=== PATIENT | male | born 1980 | race Caucasian/White ===

== ENCOUNTER 2020-05-11 13:27 | Outpatient (CLI) | payer BC, SELFPAY ==
--- NOTE | ~2020-05-11 | XR_ITS ---
XR hand LT 2V 05/11/2020 13:41 INDICATION: Pain in the left fifth finger PROCEDURE: 2 views left hand COMPARISON: 09/23/2008 FINDINGS: Fracture, dislocation or subluxation is not identified. The soft tissues appear within norm al limits. No foreign bodies are identified. IMPRESSION: 1: NO ACUTE BONE OR JOINT ABNORMALITY IDENTIFIED. Reviewed, dictated and finalized at location B. [employer]
== END 2020-05-11 13:28 ==
PROVIDERS: PCP Family Medicine; Visit Provider Physician Assistant
DX: M79.645 Pain in left finger(s) (principal)
CPT/HCPCS: 73120

== ENCOUNTER → 2020-07-21 15:00 | Outpatient (CLI) | payer BC, SELFPAY ==
--- NOTE | ~2020-07-21 | XR_ITS ---
EXAMINATION: XR foot LT min 3V DATE: 07/21/2020 15:13 INDICATION: Left foot pain TECHNIQUE: Dorsoplantar, two oblique and lateral views of the left foot were obtained. COMPARISON: None. FINDINGS: Alignment is normal. No fracture. Joint spaces are normal. Small Achilles calcaneal spur. Soft tissue s are unremarkable. No left ankle joint effusion. IMPRESSION: 1. Small enthesophytes at the calcaneal insertion of the distal Achilles tendon. Otherwise unremarkab le left foot radiographs. Reviewed, dictated and finalized at location A. IMPRESSION: 1. Small enthesophytes at the calcaneal insertion of the distal Achilles tendon . Otherwise unremarkable left foot radiographs.
== END ==
PROVIDERS: PCP Family Medicine; Visit Provider Physician Assistant
DX: M79.673 Pain in unspecified foot (principal)
CPT/HCPCS: 73630

== ENCOUNTER 2021-10-23 10:07 | Outpatient (CLI) | payer BC, SELFPAY ==
--- NOTE | ~2021-10-23 | XR_ITS ---
XR heel RT min 2V 10/23/2021 10:18 Indication: Right heel pain Procedure: 2 views right heel Comparison: 06/08/2005 Findings: No fracture, subluxation or dislocation. There is a degenerative calcaneal enthesophyte pos teriorly. No soft tissue abnormality. No foreign bodies. Impression: 1: No acute bone or joint abnormality. 2: Degenerative calcaneal enthesophyte posteriorly. Reviewed, dictated and finalized at location A. Impression: 1: No acute bone or joint abnormality. 2: Degenerative calcaneal enthesophyte posteriorly.
== END 2021-10-23 10:08 ==
PROVIDERS: PCP Physician Assistant Medical; Visit Provider Physician Assistant Medical
DX: M79.671 Pain in right foot (principal)
CPT/HCPCS: 73650

== ENCOUNTER 2023-04-17 10:36 | Outpatient (CLI) | payer BC, SELFPAY ==
[2023-04-17 18:49] LABS: Hemoglobin 14.7 g/dL (14.0-18.0); Immature Platelet Fraction Pct 14.1 % (0.9-11.2); Mean Corpuscular HGB Conc 31.3 g/dl (32-36); Mean Corpuscular Hemoglobin 29.6 pg (26-34); Mean Corpuscular Volume 94.8 fl (80-100); Mean Platelet Volume 12.7 fl (7.4-10.4); Platelet Count Result 235 k/mm3 (150-375); Red Blood Count 4.96 M/mm3 (4.6-6.20); Red Cell Distribution Width 13.5 % (11.5-14.5); White Blood Count 9.6 K/mm3 (4.5-10.0)
[2023-04-17 19:15] LABS: Alanine Aminotransferase 49 U/L (6-50); Albumin Level 4.4 g/dL (3.5-5.1); Alkaline Phosphatase 80 U/L (38-126); Anion Gap 6 mmol/L (8-16); Aspartate Amino Transferase 39 U/L (17-59); Bilirubin,Total 0.4 mg/dL (0.2-1.3); Blood Urea Nitrogen 18 mg/dL (9-20); Calcium 9.5 mg/dL (8.4-10.2); Carbon Dioxide 32 mmol/L (22-30); Chloride 101 mmol/L (98-107); Cholesterol 245 mg/dL (0-200); Estimated Glomerular Filt Rate > 60; Glucose 103 mg/dL (65-110); HDL Direct 37 mg/dL; Potassium 4.6 mmol/L (3.4-5.0); Sodium 139 mmol/L (137-145); Triglycerides 328 mg/dL (<150)
[2023-04-17 19:26] LABS: LDL Cholesterol Direct 144 mg/dL
== END 2023-04-17 10:37 | disposition home or self-care (01) ==
PROVIDERS: PCP Nurse Practitioner Adult Health; Visit Provider Nurse Practitioner Adult Health
DX: Z13.9 Encounter for screening, unspecified (principal)
CPT/HCPCS: 36415; 80053; 80061; 84443; 85027; 85055

== ENCOUNTER 2023-04-18 13:11 | Outpatient (CLI) | payer BC, SELFPAY ==
--- NOTE | ~2023-04-18 | US_ITS ---
EXAMINATION: US scrotum doppler DATE: 04/18/2023 13:43 INDICATION: Right groin pain. TECHNIQUE: Grayscale and Doppler ultrasound images of the testes were obtained. COMPARISON: None. FINDINGS: The right testis measures 4.2 x 2.2 x 3.3 cm. The left testis measures 4.4 x 2.1 x 3.1 cm. No testicular mass. There is normal vascular flow to both testes. The right epididymis contains a 1.5 cm cyst. The left epididymis is normal with normal vascular flow. Very small volume left hydrocele w ith septations. Small right varicocele. IMPRESSION: 1.5 cm right epididymal cyst. Small right varicocele. Trace left hydrocele with septations may reflect old pneumatocele or infected hydrocele, correlate fo r symptoms of infection. Reviewed, dictated and finalized at [facility] K. IC HEALTH ADMINISTRATOR IMPRESSION: 1.5 cm right epididymal cyst. Small right varicocele. Trace left hydrocele with septations may reflect old pneumatocele or infected h ydrocele, correlate for symptoms of infection.
--- NOTE | ~2023-04-18 | US_ITS ---
EXAMINATION: US soft tissue groin RT DATE: 04/18/2023 13:43 INDICATION: N50.819 - Testicular pain, unspecified . TECHNIQUE: Grayscale and Doppler ultrasound images of the right groin were obtained. COMPARISON: Ultrasound scrotum same date. FINDINGS: The area of clinical concern in the right groin was sonographically interrogated revealing a 6.1 x 2.2 x 4.0 cm inguinal mass that appears to extend through a 2.3 cm breech in the inguinal can al, with corresponding motion with the Valsalva maneuver. IMPRESSION: Right inguinal hernia. Reviewed, dictated and finalized at location K. TING SHEET TANK OPERATOR IMPRESSION: Right inguinal hernia.
== END 2023-04-18 13:12 ==
LOC: MICIMG 13:12
PROVIDERS: PCP Nurse Practitioner Adult Health; Visit Provider Nurse Practitioner Adult Health
DX: N50.3 Cyst of epididymis (principal); I86.1 Scrotal varices; K40.90 Unilateral inguinal hernia, without obstruction or gangrene, not specified as recurrent
CPT/HCPCS: 76870; 76882; 93976

== ENCOUNTER 2023-06-04 10:29 | Outpatient (CLI) | payer BC, SELFPAY ==
--- NOTE | 2023-06-04 10:30 | ECG_ITS ---
Measurements Intervals [place] Rate: 70 P: 40 AK: 158 QRS: -9 QRSD: 101 T: 24 QT: 393 QTc: 425 Interpretive Statements SINUS RHYTHM BASELINE ARTIFACT- I, II, III, AVR, AVL, AVF NORMAL ECG NO PREVIOUS ECG AVAILABLE FOR COMPARISON Electronically Signed On 06-04-2023 11:16:12 CUSTOM CAR BUILDER by Shahram Mercado D.O.
== END 2023-06-04 10:30 | disposition home or self-care (01) ==
LOC: ANHSURGERY 10:34
PROVIDERS: PCP Nurse Practitioner Adult Health; Visit Provider Surgery
DX: Z01.818 Encounter for other preprocedural examination (principal); K40.90 Unilateral inguinal hernia, without obstruction or gangrene, not specified as recurrent; Z87.891 Personal history of nicotine dependence
CPT/HCPCS: 36415; 86850; 86900; 86901; 93005

== ENCOUNTER 2023-06-06 00:13 | Day surgery (SDC) | payer BC, SELFPAY ==
[2023-06-02 11:50] VITALS: BMI 31.4
--- NOTE | 2023-06-02 11:55 | PC.NURSE ---
Report to the Outpatient Waiting Room, entrance under the green pavilion located off [facility], at time 11:30 on date 06/06/23. Planned Procedure Time: 1:30. Time changes happen often and if your time is changed the preop area will call you the afternoon before. - You and your visitor will be asked to self-screen and do not enter if you have any COVID symptoms. - A mask is optional within the hospital at this time. Patients may have clear liquids (water, carbonated beverages, clear teas, apple juice) until 3 hours prior to surgery (10:30) with a maximum of 20 ounces. - No food from midnight until time of surgery Take the following medications with a SIP of water the morning of surgery: N/A DO NOT STOP ANY OF YOUR OTHER PRESCRIPTION MEDICATIONS PRIOR TO SURGERY ?EXCEPT THE FOLLOWING Medications to discontinue per physician: N/A Date to take last dose: N/A Please no make-up, nail romansh, hairspray, perfume, deodorant, or body powder the day of surgery. No jewelry (including any body piercings) or valuables the day of surgery, leave them at home. Please take a shower or bath the night before, or the morning of, surgery with an antibacterial soap. Wear comfortable, loose fitting clothing. - Jewelry must be removed prior to entering the operating room. Rings and piercings that are not removed may be cut off. - The hospital will not accept responsibility for valuables. - Please leave all valuables, including medications, at home the day of surgery. If you are going home after surgery, a licensed forklift driver must drive you home. - NO public transportation without another adult if you receive anesthesia. - We recommend that an adult stay with you for 24 hours following discharge. - We also recommend that you do not drive, make important decision, drink alcoholic beverages, or take any drugs that were not prescribed by your health care provider for at least 24 hours after your discharge time. Follow any additional instructions given to you from your surgeon. If you or anyone in your household have experienced Covid symptoms in the past week, please notify your surgeon or the nurse liaison at the phone number below for possible testing. Telephone instructions given to PT - JOSE FRANCISCO WELLS and asked if any additional questions and then verbalized understanding. Patient advised to call surgeon office or pre surgery nurse liaison [phone] if any additional questions.
[2023-06-06] VITALS (10 sets, daily range): BP systolic 129–153; BP diastolic 78–93; PULSE 69–89; RESP 14–16; TEMP 36.4–37; O2SAT 96–100
--- NOTE | 2023-06-06 07:12 | PM.IMHP ---
H&P: HPI History of Present Illness Date/Time: 06/06/23 07:12 Chief Complaint: Right inguinal hernia Narrative: Mr. Laura presents to the office at the request of Amaris Cantor APRN for evaluation. Patient reports a 4 to 5 week history of right groin bulging.? Most prominent with prolonged ambulation and strenuous activity.? Reduces easily with rest and lying down.? Also noticed a small nodule in his scrotum.? Was sent by his PCP for a soft tissue ultrasound of the right groin and a scrotal ultrasound. Soft tissue ultrasound showed: FINDINGS: The area of clinical concern in the right groin was sonographically interrogated revealing a 6.1 x 2.2 x 4.0 cm inguinal mass that appears to extend through a 2.3 cm breech in the inguinal canal, with corresponding motion with the Valsalva maneuver. Scrotal ultrasound showed: FINDINGS: The right testis measures 4.2 x 2.2 x 3.3 cm. The left testis measures 4.4 x 2.1 x 3.1 cm. No testicular mass. There is normal vascular flow to both testes. The right epididymis contains a 1.5 cm cyst. The left epididymis is normal with normal vascular flow. Very small volume left hydrocele with septations. Small right varicocele. Denies urological evaluation for finding on scrotal imaging.. Review of Systems Review of Systems: The remainder of the review of systems to include constitutional, HEENT, cardiovascular, respiratory, GI, , integumentary, musculoskeletal, endocrine, immunologic, hematologic, psychiatric, and neurologic are all negative except for which is mentioned above in the HPI. [facility] Past Medical History Medical History Heel spur Family History Family History Grandparent Brain cancer Alzheimer disease Social History Social History Smoking packs per day: 1 Smoking cigarettes per day: 20.0 Years smoked: 25 Smoking pack-years: 25.00 Smoking status: Former smoker Tobacco type: cigarettes Second hand tobacco smoke exposure: Yes Smoking end date: 03/31/21 Alcohol intake: current Drinks per week: 1 Alcohol use details: 8/MONTH Substance use: current Substance use type: marijuana Lack of Transportation: No Lack of Food: Never True Current Housing: I Have Housing Concerned About Future Housing: No Difficulty Paying Gas/Electric Bills: No Difficulty Paying for Meds: No Currently Unemployed: No Education: High School Diploma/GED Difficulty w/ Childcare or Family Care: No Living arrangements: with family Occupation/Education: occupation Gender identity (if verbalized by the patient): Male Spiritual care concerns: No Agree to blood products: Yes Meds Home Medications and Allergies Home Medications Medication Instructions Recorded Confirmed Type No Home Medications 06/02/23 06/02/23 History Allergies Allergy/AdvReac Type Severity Reaction Status Date / Time No Known Allergies Allergy Mild Verified 06/02/23 11:48 Exam Const: General: comfortable and no acute distress HENMT: Ears: TM's normal bilaterally Face/Nose/Sinus: Normal nares present Mouth: Yes moist mucous membranes Eyes: General: appearance normal, both eyes and all related structures Sclera: sclerae normal Pupils: Equal, round and reactive pupils present EOM: EOMs intact bilaterally Neck: Neck: supple and no JVD Resp: Effort & Inspection: normal respiratory effort Auscultation: clear to auscultation bilaterally Cardio: Rate: regular rate Rhythm: regular rhythm GI: GI Palp: Yes Soft to palpation, No Firmness to palpation present (GI), No Tenderness to palpation present (GI), No Guarding due to palpation present (GI) and No Hernia present : Other: Bilateral descended testes.? Moderate reducible right inguinal hernia. No left inguinal hernia.? Unable to appreciate hydrocele or v
--- NOTE | 2023-06-06 07:15 | WPDHPUPDATE1 ---
History and Physical Update Update Date/Time: 06/06/23 07:15 History and Physical has been reviewed, including an updated exam of the patient. There are NO changes in the patient's condition. Risks, benefits, and alternatives have been discussed and questions answered. Patient agrees to proceed with procedure.
[2023-06-06] MEDS: ACETAMINOPHEN 500 MG TABLET 1000 MG PO (11:42)
--- NOTE | 2023-06-06 12:07 | P.PNAN_ITS ---
Anes - Initial Pre Proc Eval Procedure: Operation Date: 06/06/23 13:30 Proposed Procedures p Robotic Assisted Laparoscopic Right Inguinal Hernia Repair with Mesh, Possible Left Inguinal Hernia Repair - Edison Shore MD Date/Time: 06/06/23 12:07 Surgeon: Edison Shore MD Pre Op Diagnosis: reducible right Inguinal Hernia Patient Data Age: 42 Gender: M Height: 1.88 m Weight: 111.8 kg Allergies Allergy/AdvReac Type Severity Reaction Status Date / Time No Known Allergies Allergy Mild Verified 06/06/23 11:40 Home Medications Medication Instructions Recorded Confirmed Type No Home Medications 06/02/23 06/02/23 History Patient hx anesthesia problems: none Family hx anesthesia problems: none Results Review: All pre-operative results and documents have been reviewed as part of the pre- operative evaluation. [facility] Past Medical History Medical History Heel spur Family History Family History Grandparent Brain cancer Alzheimer disease Social History Social History Smoking packs per day: 1 Smoking cigarettes per day: 20.0 Years smoked: 25 Smoking pack-years: 25.00 Smoking status: Former smoker Tobacco type: cigarettes Second hand tobacco smoke exposure: Yes Smoking end date: 03/31/21 Alcohol intake: current Drinks per week: 1 Alcohol use details: 8/MONTH Substance use: current Substance use type: marijuana Lack of Transportation: No Lack of Food: Never True Current Housing: I Have Housing Concerned About Future Housing: No Difficulty Paying Gas/Electric Bills: No Difficulty Paying for Meds: No Currently Unemployed: No Education: High School Diploma/GED Difficulty w/ Childcare or Family Care: No Living arrangements: with family Occupation/Education: occupation Gender identity (if verbalized by the patient): Male Spiritual care concerns: No Agree to blood products: Yes Anes - Eval Final PreProcedure Day of Procedure 06/06/23 12:07 Patient weight: obese Heart: regular rate and rhythm Lungs: clear to auscultation Airway: Mallampati scale class II Neurological: alert and oriented Last oral intake: >/= 8 hours ASA classification: II Emergent: no Anesthetic plan: proceed Anesthesia type and monitoring: general ETT and standard monitoring Results Review: All pre-operative results and documents have been reviewed as part of the pre- operative evaluation. Informed Consent: The patient's anesthetic plan and its attendant risks and benefits were discussed with the patient/family/POA. Questions were solicited and answers provided to the satisfaction of the patient/family/POA.
[2023-06-06] MEDS: LACTATED RINGERS 1,000 ML 30 ML IV CONT ×2 (12:09→15:12)
[2023-06-06] MEDS: KETOROLAC 15 MG/ML VIAL (*BKC) IV PUSH (12:10)
[2023-06-06] MEDS: ceFAZolin 2 GM/D5W 50 ML 2 GM/50 ML BAG IVPB (13:04)
[2023-06-06] MEDS: BUPivacaine HCL 0.5% 10 ML AMP 30 ML INFILTRATE (13:46)
[2023-06-06] MEDS: LIDO 1%/EPINEPHRINE 1:100,000 50 ML VIAL 30 ML INFILTRATE (13:47)
--- NOTE | 2023-06-06 14:56 | W.PM.PROC2 ---
Procedure Note - Detailed Date of Procedure 06/06/23 Pre-op Diagnosis Reducible right Inguinal Hernia Post-op Diagnosis Same (Reducible direct right inguinal hernia) Procedure Performed Robotic assisted laparoscopic right inguinal hernia repair with Bard 3D mid weight mesh (17 x 12 cm) Surgeon Edison Shore MD Home Care Attendant JUANITA Becerril Anesthesia General Indications Patient is a 42-year-old gentleman who presented with a bulge in the right groin region which was enlarging and causing pain. On examination the office he appeared to have a moderately large right inguinal hernia which was reducible. He presents now for elective robotic assisted laparoscopic right inguinal hernia repair with mesh Findings Patient a moderate-sized direct right inguinal hernia. No incarcerated contents. No evidence of a left inguinal hernia. Description of Procedure After informed consent was obtained patient brought to the operating room was placed supine position and general endotracheal anesthesia was administered. The abdomen in the bilateral groin regions were then prepped draped usual sterile fashion. A time-out was then performed correctly identifying the patient as well as procedure to be performed. Site marking was verified. He was given perioperative IV antibiotics. I then entered the abdomen left upper quadrant utilizing a 10mm Optiview port. Once inside the abdomen insufflated to adequate pneumoperitoneum of 15mmHg of CO2. With the patient in 15? head-down Trendelenburg I then exam of both groins. The right groin had a direct defect which was moderate-sized. Incarcerated contents in the defect. The left groin region had no evidence of a left inguinal hernia. I then placed additional robotic trocar ports across the mid abdomen under direct visualization. The [place] [employer] robot was brought to the patient's bedside and docked and the robotic arms were attached the robotic ports. Robotic instruments were then advanced into the abdomen direct visualization then I scrubbed out the procedure sent down the robotic console to perform the dissection. I 1st started by making a preperitoneal flap long lower abdominal wall extending just anterior medial to the right anterior superior iliac spine in over to almost the midline dividing the right side the median umbilical ligament. Continued my dissection down through this essentially avascular preperitoneal plane. Medially I down to the pseudo sac and identified the right pubic tubercle. I dissected off the right pubic tubercle and dissected down to the space of Retzius. I then continued my dissection more laterally where I reduced the preperitoneal fat out of the pseudo sac and the direct defect. I continued my dissection then laterally to dissect the peritoneum off of the cord structures. 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 There is no evidence of a indirect defect. No evidence of a femoral defect either. Once I had the peritoneum dissected far enough back onto the psoas muscle that I felt that the mesh would not follow-up with closure of the peritoneum I then closed the direct defect utilizing a running 2-0 absorbable V lock suture. The pseudo sac was imbricated with the closure of the defect. I then chose my mesh which was an extra-large [id number] right-sided oriented Bard 3D mid weight mesh. The mesh was placed into the abdomen through the optometrist assistant port and spread over the dissected space. It covered the indirect, direct, and femoral spaces easily. Medially the mesh was secured to tissues around the pubic tubercle utilizing interrupted 2-0 Vicryl sutures. Laterally was secured to the muscle anterior medial to the right anterior superior iliac spine. Another suture was then placed to approximate the mesh to the closed direct defect. The mesh laid out very nicely for the home myopectineal orifice
[2023-06-06] MEDS: fentaNYL CITRATE INJ (*CRX) 100 MCG/2 ML VIAL 25 MCG IV PUSH (15:48)
[2023-06-06] MEDS: oxyCODONE HCL (*CRX) 5 MG TAB IR PO (16:15)
== END 2023-06-06 17:03 | disposition home or self-care (01) ==
PROVIDERS: PCP Nurse Practitioner Adult Health; Visit Provider Surgery
PROC: 8E0Y4CZ Robotic Assisted Procedure of Lower Extremity, Percutaneous Endoscopic Approach (ICD-10-PCS; CPT 49650; principal; 2023-06-06 13:30)
DX: K40.90 Unilateral inguinal hernia, without obstruction or gangrene, not specified as recurrent (principal); Z87.891 Personal history of nicotine dependence; F12.90 Cannabis use, unspecified, uncomplicated; E66.9 Obesity, unspecified; Z68.31 Body mass index [BMI] 31.0-31.9, adult
CPT/HCPCS: 49650; S2900; 36415; 86850; 86900; 86901; 93005; A9270; C1781; J0690; J1100; J1885; J2250; J2405; J2704; J3010; J7030; J7120